=== PATIENT | male | born 1960 | race African-American/Black ===

== ENCOUNTER 2017-03-03 11:18 | Emergency (ER) | payer SELFPAY ==
[2017-03-03] MEDS ORDERED: Morphine 4 MG/ML VIAL ONE (12:02)
[2017-03-03] MEDS ORDERED: Ondansetron HCl/PF 4 MG/2 ML Vial ONE (12:02)
[2017-03-03 12:39] LABS: #Eosinphils 0.1 thou/uL (0.0-0.7); #Lymphocytes 1.7 thou/uL (1.20-3.40); #Neutrophils 14.1 thou/uL (1.40-6.50); %Basophils 0.2 % (0.0-1.0); %Eosinophils 0.3 % (0.0-10.0); %Lymphocytes 10.1 % (21.0-51.0); %Monocytes 6.1 % (0.0-10.0); %Neutrophils 83.2 % (42.0-75.0); Hemoglobin 13.4 g/dL (14.0-18.0); Mean Corpuscular HGB CONC 30.7 g/dL (32.0-36.0); Mean Corpuscular Hemoglobin 23.8 pg (27.0-31.0); Mean Corpuscular Volume 77.8 fl (80.0-94.0); Mean Platelet Volume 8.6 fL (7.4-10.4); Platelet Count 193 thou/uL (130-400); RBC Distribution Width 14.3 % (11.5-14.5); Red Blood Cell (RBC) Count 5.63 mill/uL (4.70-6.10); White Blood Cell (WBC) Count 16.9 thou/uL (4.8-10.8)
[2017-03-03 12:48] LABS: ALT (SGPT) 16 U/L (8-55); AST (SGOT) 26 U/L (5-34); Albumin 3.8 g/dL (3.5-5.0); Alkaline Phosphatase 64 U/L (40-150); Anion Gap 13 mmol/L (10-20); BUN (Urea Nitrogen) 15 mg/dL (8.4-25.7); Bilirubin, Total 0.3 mg/dL (0.2-1.2); Calc. Creatinine Clearance 0 mL/min (70-130); Calcium 8.8 mg/dL (7.8-10.44); Carbon Dioxide 23 mmol/L (22-29); Chloride 108 mmol/L (98-107); Estimated GFR-MDRD 81; Globulin 3.1 g/dL (2.4-3.5); Glucose 164 mg/dL (70-105); Potassium 4.4 mmol/L (3.5-5.1); Protein, Total 6.9 g/dL (6.0-8.3); Sodium 140 mmol/L (136-145)
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
[2017-03-03] MEDS ORDERED: Propofol 500 MG/50 ML VIAL ONE (13:20)
[2017-03-03] MEDS ORDERED: HYDROcodone/Acetaminophen 5/325 mg Tablet ONE (14:28)
--- NOTE | 2017-03-03 15:25 | RAD ---
LEFT SHOULDER: CLINICAL HISTORY: Post reduction. Single view provided, limited survey. FINDINGS: There is improvement of the left shoulder on the provided frontal view with redemonstration of commin uted fracture limited in assessment. Nonspecific patchy density is seen at the left lateral lower carly ng zone incompletely evaluated. IMPRESSION: 1. Improved alignment of the left shoulder with redemonstration of proximal left humeral comminuted fracture. 2. Incidental note of patchy density at the left lateral lung base incompletely assessed. POS: [facility]
== END 2017-03-03 14:46 | disposition home or self-care (01) ==
LOC: ERS 11:18
DX: S42.202A Unspecified fracture of upper end of left humerus, initial encounter for closed fracture (principal); V89.2XXA Person injured in unspecified motor-vehicle accident, traffic, initial encounter
CPT/HCPCS: 23675; 36415; 71045; 80053; 85025; 86850; 86900; 86901; 94760; 96374; 96375; 99152; J2270; J2405; J2704